=== PATIENT | male | born 1930 | race Caucasian/White ===

== ENCOUNTER → 2018-04-02 | Outpatient (CLI) | payer OTHER | LOC: BHFA 13:15 | PROVIDERS: ATTEND Nurse Practitioner Adult Health | DX: R06.02 Shortness of breath (principal); R00.1 Bradycardia, unspecified; R53.83 Other fatigue; I10 Essential (primary) hypertension ==

== ENCOUNTER → 2018-04-23 | Outpatient (CLI) | payer OTHER | LOC: BHFA 14:00 | PROVIDERS: ATTEND Internal Medicine Cardiovascular Disease | DX: R06.02 Shortness of breath (principal); R53.83 Other fatigue ==

== ENCOUNTER 2018-04-26 16:35 | Inpatient (IN) | payer OTHER, MEDICARE ==
[2018-04-26] MEDS ORDERED: ONDANSETRON DISINTEGRATING 4 MG TAB PO PRN (17:02)
[2018-04-26] MEDS ORDERED: HYDROCODONE/APAP 5/325 TAB PO PRN (17:02)
[2018-04-26] MEDS ORDERED: ONDANSETRON 4 MG/2 ML VIAL IVP PRN (17:02)
[2018-04-26] MEDS: LISINOPRIL 20 MG TAB PO SCH (22:16)
[2018-04-26] MEDS: PANTOPRAZOLE SODIUM 40 MG TAB PO SCH (22:16)
[2018-04-26] MEDS: PRAVASTATIN SODIUM 20 MG TAB PO SCH (22:16)
[2018-04-27 04:28] LABS: PLATELET COUNT 196 10^3/uL (150-400)
[2018-04-27 04:40] LABS: INR 1.05 (0.83-1.16); PROTIME(PATIENT) 13.9 SEC (12.0-15.0)
[2018-04-27] MEDS ORDERED: BACITRACIN IRRIGATION/NS 50,000 UNITS/1,000 ML BTL IRR ONE (06:00)
[2018-04-27] MEDS ORDERED: NS 1,000 ML IV ONE (06:00)
[2018-04-27] MEDS ORDERED: ceFAZolin 2 GM/DEXTROSE 100 ML IV ONE (06:00)
[2018-04-27] MEDS ORDERED: IOPAMIDOL (ISOVUE-300) 50 ML VIAL ONE (08:02)
[2018-04-27] MEDS ORDERED: BUPIVACAINE 0.5% 30 ML SDV ONE (08:03)
[2018-04-27] MEDS ORDERED: LIDO/EPI 1% **for epidural** 30 ML SDV ONE (08:03)
[2018-04-27] MEDS ORDERED: MIDAZOLAM 2 MG/2 ML VIAL ONE (08:03)
[2018-04-27] MEDS ORDERED: fentaNYL 100 MCG/2 ML INJ ONE (08:03)
[2018-04-27] MEDS ORDERED: LIDOCAINE 1% 300 MG/30 ML SDV ONE (08:03)
--- NOTE | 2018-04-27 09:09 | PDHPUP ---
History & Physical Update H&P update statement: This history and physical update is based on an assessment of the patient which was completed after admission or registration (within 24 hours), but prior to the surgery/procedure. H&P update: H&P reviewed & patient examined, no change in patient's condition since H&P completed
--- NOTE | 2018-04-27 09:10 | PDPROPOC ---
Sedation Plan of Care Sedation Plan of Care: vital signs stable, mental status noted, patient educated of risks, benefits, alternatives, patient can tolerate sedation ASA Classification: ASA 2 Planned drugs: fentanyl, midazolam Mallampati Score: Class 1 Mallampati Reference Image: Patient passed 3-3-2 rule?: Yes
--- NOTE | 2018-04-27 12:59 | PDCTREPORT ---
Cardiothoracic Procedure Rpt Cardiothoracic Procedure Report: Procedure: Implantation of a dual-chamber pacemaker Indications: 87-year-old recurrent syncope with 5.6 sec sinus arrest. After obtaining informed consent patient was brought to the cardiac catheterization lab in the fasting state. The left subclavian fossa was sterilely prepped and draped. Subclavian venogram was performed. An area below the clavicle was anesthetized with 2% xylocaine. Using a 10 blade an incision was made. Using a combination of sharp and blunt dissection the Bovie catheter pacemaker pocket was created and a bacitracin soaked sponge was placed in the pocket. Using 18 gauge percutaneous needle guidewires were advanced into the right heart x2. Using 6 [place] safety she has leads were advanced into the RV apex right atrial appendage. Sheaths were torn away. Appropriate sensitivities and thresholds were confirmed. The leads were attached to the fascia using 0 Ethibond x2. The bacitracin soaked sponge was removed from the pocket was copiously irrigated. The generator was delivered to the field and attached to the leads. Set screws were tightened per industry standards. The entire system was coiled into the pocket and checked under fluoroscopy. Standard three-layer closure was used. A pressure dressing was applied the patient is taken to recovery for continued care. The device is an Assurity MRI serial [id number]. Right atrial lead is a tendril SDS 52 cm. Serial number [id number] Ventricular lead is a tendril SDS 58 cm serial number [id number] Right atrial sensing was 3.2 m V. Capture was at 0.7 volts with a pulse with a 0.5 milliseconds. Impedance was 480 Ohms. Right ventricular sensing was 9.1 m V. Capture was at 0.75 volts with a pulse with a 0.5 milliseconds. Impedance was 890 Ohms. Conclusions: Successful implantation of a dual-chamber pacemaker Complications: None chest x-ray pending EBL less than 10 cc.
[2018-04-27] MEDS: LISINOPRIL 20 MG TAB PO SCH (17:52)
[2018-04-27] MEDS: PANTOPRAZOLE SODIUM 40 MG TAB PO SCH (17:52)
[2018-04-27] MEDS: PRAVASTATIN SODIUM 20 MG TAB PO SCH (17:52)
[2018-04-27] MEDS: ACETAMINOPHEN 325 MG TAB PO PRN (17:59)
[2018-04-27] MEDS ORDERED: ASPIRIN EC 81 MG TAB PO SCH (18:00)
[2018-04-28 07:37] VITALS: BP 149/83
[2018-04-28] MEDS: ACETAMINOPHEN 325 MG TAB PO PRN (08:01)
--- NOTE | 2018-04-28 09:05 | PDDCSUM ---
Discharge Summary Discharge Summary: Admission date: April 26, 2018 Date of discharge: 04/28/2018 Admission diagnosis: Syncope with sinus arrest. Discharge diagnosis: Permanent pacemaker insertion, syncope, sinus arrest. Procedure: Implantation of a dual-chamber pacemaker. Follow-up wound check 1 week, follow-up pacemaker interrogation at 30 days for optimization of device. Hospital course: 87-year-old male admitted electively for insertion of a permanent pacemaker. This was done successfully without complication. On the day of discharge physical examination blood pressure was 120/70. Heart rate was 60. Well-nourished well-developed male resting flat. Pacemaker was healing well without erythema or edema. Device was interrogated and working properly. There was no pneumothorax by chest x-ray. Patient be ambulated and discharged home with clinical follow-up as outlined above. Conclusions: Successful implantation of a dual-chamber pacemaker in the setting of syncope with sinus arrest. No change in medications. Follow-up as outlined above.
--- NOTE | 2018-04-28 10:20 | ASDISCHSUM ---
Discharge Information Plan Status: Medically Cleared to Leave: Discharge Date:04/28/2018 10:11 AM CM D/C Disposition: ADT D/C Disposition:Home, Routine, Self-Care Projected Discharge Date:04/28/2018 10:11 AM Transportation at D/C: Discharge Delay Reason: Follow-Up Date:04/28/2018 10:11 AM Discharge Slot: Final Diagnosis: Placement Information Patient Contact Information Contact Name:GLORIA Relationship: Address:[address] [place] Alternate Phone: State/Zip Code:[place] [address] Email: Financial Information Financial Class:Medicare Primary Plan Desc:MEDICARE INPATIENT Primary Plan Number:[id number] Secondary Plan Desc:YUMIKO/MOSES SUPPLEMENT Secondary Plan Number:[id number] Assessment Information LACE LACE Length of stay for Answers: Less than 1 day current admission Acuity / Level of Answers: Yes Care: Did the patient have an inpatient admission? Comorbidities - select Answers: Other Notes: pacemaker all that apply # of Emergency department Answers: 0 visits in the last 6 months Score: 4 Date Signed: 04/28/2018 10:18 AM Electronically Signed By:Nathaly Ledezma LCSW [facility] Progress Note CM Note CM Note Notes: Pt admitted to have pacemaker implanted. Pt will DC with no needs. Date Signed: 04/28/2018 10:20 AM Electronically Signed By:Nathaly Ledezma LCSW Intervention Information
--- NOTE | 2018-04-28 14:24 | PDMN ---
Medical Necessity Medical necessity: est los>2mn for syncope with sinus arrest; admit for PPM placement on 04/27/18; per order and cardiology progress notes
== END 2018-04-28 10:11 | disposition home or self-care (01) | DRG 244 ==
LOC: F2W 16:55 → OBSVTOIN 17:02
PROVIDERS: ADMIT Internal Medicine Cardiovascular Disease; ATTEND Internal Medicine Cardiovascular Disease
PROC: 02H63JZ Insertion of Pacemaker Lead into Right Atrium, Percutaneous Approach (ICD-10-PCS; principal; 2018-04-27)
PROC: 02HK3JZ Insertion of Pacemaker Lead into Right Ventricle, Percutaneous Approach (ICD-10-PCS; principal; 2018-04-27)
PROC: 0JH606Z Insertion of Pacemaker, Dual Chamber into Chest Subcutaneous Tissue and Fascia, Open Approach (ICD-10-PCS; principal; 2018-04-27)
DX: I49.5 Sick sinus syndrome (principal)
CPT/HCPCS: C1785; C1898; J0690; J2250; J3010; Q9967